=== PATIENT | female | born 1930 | race Caucasian/White ===

== ENCOUNTER 2018-09-22 13:42 | Emergency (ER) | payer MEDICARE, BC ==
[2018-09-22] MEDS ORDERED: Glucagon,Human Recombinant 1 MG Vial IM ONE (13:52)
--- NOTE | 2018-09-22 13:55 | EDM.PDOC ---
ED HPI GENERAL MEDICAL PROBLEM - General Chief Complaint: ENT Problem Stated Complaint: CHOKING Time Seen by Provider: 09/22/18 13:53 Source of Information: Reports: Patient - History of Present Illness INITIAL COMMENTS - FREE TEXT/NARRATIVE: HISTORY AND PHYSICAL: History of present illness: [Patient presents by private vehicle [place] today she choked on a piece of sweet potato which she was able to bring up some or part of into the sink she is breathing freely speaking without any distress. Sentences, continues to have odynophagia Initially at home she was unable to take water as it would come back up however she was able to take a drink of water here in past water into the stomach difficulty No fever nausea vomiting chills sweats no shortness breath or wheeze Review of systems: As per history of present illness and below otherwise all systems reviewed and negative. Past medical history: As per history of present illness and as reviewed below otherwise noncontributory. Surgical history: As per history of present illness and as reviewed below otherwise noncontributory. Social history: No reported history of drug or alcohol abuse. Family history: As per history of present illness and as reviewed below otherwise noncontributory. Physical exam: HEENT: Atraumatic, normocephalic, pupils reactive, negative for conjunctival pallor or scleral icterus, mucous membranes moist, throat clear, neck supple, nontender, trachea midline. Lungs: Clear to auscultation, breath sounds equal bilaterally, chest nontender. Heart: S1S2, regular, negative for clicks, rubs, or JVD. Abdomen: Soft, nondistended, nontender. Negative for masses or hepatosplenomegaly. Negative for costovertebral tenderness. Pelvis: Stable nontender. Genitourinary: Deferred. Rectal: Deferred. Extremities: Atraumatic, negative for cords or calf pain. Neurovascular unremarkable. Neuro: Awake, alert, oriented. Cranial nerves II through XII unremarkable. Cerebellum unremarkable. Motor and sensory unremarkable throughout. Exam nonfocal. Diagnostics: [Chest 1 view ] Therapeutics: [ glucagon 1 mg IM ] Impression: odynaphasia Choking- resolved ] Definitive disposition and diagnosis as appropriate pending reevaluation and review of above. - Related Data Allergies Allergy/AdvReac Type Severity Reaction Status Date / Time codeine Allergy Nausea/chil Verified 06/13/18 16:05 ls meperidine [From Demerol] Allergy Anaphylactic Verified 06/13/18 16:05 Shock Sulfa (Sulfonamide Allergy Rash Verified 06/13/18 13:11 Antibiotics) Home Meds: Home Meds Ascorbic Acid [Vitamin C] 1,000 mg PO DAILY 06/13/18 [History] Becaplermin [Regranex] 1 applic TOP ASDIRECTED PRN 06/13/18 [History] Calcium Carb & Citrate/Vit D3 [Citracal + D ER] 1 tab PO DAILY 06/13/18 [History ] Candesartan Cilexetil [Atacand] 8 mg PO DAILY 06/13/18 [History] Celecoxib 200 mg PO DAILY 06/13/18 [History] Clopidogrel Bisulfate [Plavix] 75 mg PO DAILY 06/13/18 [History] Cyanocobalamin (Vitamin B-12) [Vitamin B-12] 500 mcg PO DAILY 06/13/18 [History] Gabapentin [Neurontin] 1 tab PO TID 06/13/18 [History] Insulin NPH Hum/Reg Insulin Hm [Humulin 70-30 Vial] 10 units SUBCUT BID [History] Insulin Regular, Human [HumuLIN R] 1 injection SUBCUT ASDIRECTED 06/13/18 [ History] Juice Plus Fibre Oral Liquid 1 dose PO ASDIRECTED 06/13/18 [History] Latanoprost/Pf [Latanoprost 0.005% Eye Drop] 1 drop EYEBOTH BEDTIME 06/13/18 [ History] Levothyroxine Sodium [Levoxyl] 100 mcg PO DAILY 06/13/18 [History] Lysine HCl [l-Lysine] 500 mg PO DAILY 06/13/18 [History] Multivit-Min/FA/Lycopene/Lut [Centrum Silver Tablet] 1 tab PO DAILY 06/13/18 [ History] Naproxen Sodium [Aleve] 220 mg PO BEDTIME PRN 06/13/18 [History] Omeprazole 40 mg PO DAILY 06/13/18 [History] Past Medical History HEENT History: Reports: Glaucoma, Other (See Below) Other HEENT History: wears glasses, has top denture Cardiovascular History: Reports: None Respiratory History: Reports: None, Intubation, Previous Gastrointestinal History: Reports: Cholelithiasis, Colon Polyp Genitourinary History: Reports: None BIOLOGY INTERNSHIP History: Reports: Other BIOLOGY INTERNSHIP History: hystroctomy Musculoskeletal History: Reports: Back Pain, Chronic, Fracture, Osteoarthritis Neurological History: Reports: None Psychiatric History: Reports: None Endocrine/Metabolic History: Reports: Diabetes, Type II, Hypothyroidism, Obesity /BMI 30+ Hematologic History: Reports: None Immunologic History: Reports: None Oncologic (Cancer) History: Reports: Thyroid Dermatologic History: Reports: Decubitus Ulcer Other Dermatologic History: recent fall on 06/13/18, some bruising - Infectious Disease History Infectious Disease History: Reports: None - Past Surgical History Head Surgeries/Procedures: Reports: None GI Surgical History: Reports: Appendectomy, Cholecystectomy, Colonoscopy Endocrine Surgical History: Reports: Thyroidectomy Other Endocrine Surgeries/Procedures: thyroidectomy with lymph node dissection for thyroid cancer Other Musculoskeletal Surgeries/Procedures:: back surgery Social & Family History - Family History Family Medical History: Noncontributory - Tobacco Use Smoking Status *Q: Never Smoker - Caffeine Use Caffeine Use: Reports: None - Recreational Drug Use Recreational Drug Use: No ED ROS GENERAL - Review of Systems Review Of Systems: See Below ED EXAM, GENERAL - Physical Exam Exam: See Below Course - Vital Signs Last Recorded V/S: Last Vital Signs Temp 98.3 F 09/22/18 13:45 Pulse 60 09/22/18 13:45 Resp 28 H 09/22/18 13:45 BP 171/75 H 09/22/18 13:45 Pulse Ox 98 09/22/18 13:45 - Orders/Labs/Meds Meds: Medications Discontinued Medications Generic Name Dose Route Start Last Admin Trade Name Nolanq PRN Reason Stop Dose Admin Glucagon 1 mg 09/22/18 13:52 09/22/18 14:04 Glucagen IM 09/22/18 13:53 1 mg ONETIME ONE Administration Departure - Departure Time of Disposition: 14:50 Disposition: Home, Self-Care 01 Condition: Good Clinical Impression: Odynophagia - Discharge Information Referrals: PCP,Unknown [Primary Care Provider] - Forms: ED Department Discharge Additional Instructions: Return if symptoms persist or worsen Follow-up with primary Dr. Luis Alvarado and consider further referral for repeat EGD to evaluate for stricture given your cancer history and previous dilation [address] prior [address] [address] The following information is given to patients seen in the emergency department who are being discharged to home. This information is to outline your options for follow-up care. We provide all patients seen in our emergency department with a follow-up referral. The need for follow-up, as well as the timing and circumstances, are variable depending upon the specifics of your emergency department visit. If you don't have a primary care physician on staff, we will provide you with a referral. We always advise you to contact your personal physician following an emergency department visit to inform them of the circumstance of the visit and for follow-up with them and/or the need for any referrals to a consulting specialist. The emergency department will also refer you to a specialist when appropriate. This referral assures that you have the opportunity for follow-up care with a specialist. All of these measure are taken in an effort to provide you with optimal care, which includes your follow-up. Under all circumstances we always encourage you to contact your private physician who remains a resource for coordinating your care. When calling for follow-up care, please make the office aware that this follow-up is from your recent emergency room visit. If for any reason you are refused follow-up, please contact the [facility] emergency department at and asked to speak to the emergency department charge nurse.
--- NOTE | 2018-09-22 14:35 | CR ---
EXAMINATION: Portable chest radiograph. HISTORY: Shortness of breath. FINDINGS: The trachea is midline. The cardiomediastinal silhouette is within normal limits. No pulmonary infiltrates, effusions or pneumothorax. Osseous structures appear unremarkable. IMPRESSION: No acute cardiopulmonary process.
== END 2018-09-22 15:10 | disposition home or self-care (01) ==
LOC: MW.ED 13:42
DX: R13.10 Dysphagia, unspecified (principal); E11.9 Type 2 diabetes mellitus without complications; E03.9 Hypothyroidism, unspecified; Z88.5 Allergy status to narcotic agent; Z88.2 Allergy status to sulfonamides; Z79.899 Other long term (current) drug therapy; Z79.4 Long term (current) use of insulin
CPT/HCPCS: 71045; 96372; 99284; J1610; 99283